=== PATIENT | female | born 1990 | race Caucasian/White ===

== ENCOUNTER 2018-07-01 18:24 | Emergency (ER) | payer MEDICAID ==
--- NOTE | 2018-07-01 20:32 | ED Physician Chart ---
ED Chief Complaint/HPI - Patient Information Date Seen:: 07/01/18 Time Seen:: 20:30 Chief Complaint:: Right hip pain History of Present Illness:: 27 yo female s/p MCA a year ago followed by chronic low back pain with radiation to right lower extremity at right knee level. Pt stated that she had MRI lumbar spine showing a disc bulging/herniation. Pt stated that she had 4 flareups during last 1 year. Each flareup lasted for about 2 weeks relieved by Tylenol and robaxin, or tramadol and robaxon for moderate to severe pain. Pt's current flareup started 2 days ago after her recent relocation to this area. Pt denied any numbness, tingling or weakness in the right lower extremity. Pt lost insurance and could not see her doctor for prescription now. Pt wanted a prescription for tramadol. Allergies:: Allergies Allergy/AdvReac Type Severity Reaction Status Date / Time No Known Allergies Allergy Verified 07/01/18 18:54 Vitals:: Vital Signs - 8 hr 07/01/18 18:47 Temp 98.8 F HR 85 RR 18 BP 109/66 O2 Sat % 100 ED Review of Systems - Review of Systems General/Constitutional: No fever Skin: No skin lesions Head: No headache Eyes: No pain ENT: No nasal drainage Neck: No neck pain Cardio Vascular: No chest pain GI: No nausea, No vomiting Musculoskeletal: Back pain Neurological: No focal symptoms ED Past Medical History - Past Medical History Past Medical History: No significant medical hx Social History: Non Smoker, No Alcohol, No Drug Use Surgical History: Cholecystectomy, (x 3), other (tubal ligation) Family Medical History - Family Member Mother History Unknown: Yes ED Physical Exam - Physical Examination General/Constitutional: Awake, Alert Head: Atraumatic Eyes: PERRL, EOMI Skin: No ecchymosis ENMT: Nasal exam nl Neck: No nuchal rigidity Respiratory: Clear to Auscultation Cardio Vascular: RRR, No murmur, gallop, rubs, NL S1 S2 GI: No tenderness/rebounding/guarding Extremities: No edema Neuro/Psych: Alert/oriented Other Neuro/Psych comments:: Straight leg raise test caused right buttock and posterior thigh pain but not low back pain. Right EHL somewhat weaker than left EHL ED Labs/Radiology/EKG Results - Lab Results Results: Laboratory Last Values POC Ur Test Negative 07/01/18 21:18 ED Assessment - Assessment General Assessment: Lumbago Possible right lumbar radiculopathy Assessment/Comments:: Urine hCG test negative Toradol 60mg IM ED Septic Shock - . Is Septic Shock (SBP<90, OR Lactate>4 mmol\L) present?: No - <6hrs of presentation: Vital Signs: Vital Signs - 8 hr 07/01/18 18:47 Temp 98.8 F HR 85 RR 18 BP 109/66 O2 Sat % 100 ED Reassessment (Disposition) - Reassessment Reassessment:: After toradol IM, the pain was partially relieved Reassessment Condition:: Improved - Aftercare/Follow up Instructions Notes:: D/c home. Recommended raboxin 500mg bid x 7 days F/u PCP for physical therapy and pain management Return to ER if symptoms worsen - Patient Disposition Discharge/Transfer:: Home
== END 2018-07-01 21:45 | disposition home or self-care (01) ==
LOC: ER 18:24
DX: M25.551 Pain in right hip (principal); M54.5 Low back pain; G89.29 Other chronic pain; Z90.49 Acquired absence of other specified parts of digestive tract; Z98.890 Other specified postprocedural states
CPT/HCPCS: 99283; 96372; 81025; J1885; Z7502